=== PATIENT | female | born 1975 | race Caucasian/White ===

== ENCOUNTER 2017-04-24 09:56 | Emergency (ER) | payer OTHER ==
[~2017-04-24] VITALS: Ht 160 cm; Wt 60.0 kg
[~2017-04-24 09:56] MED LIST: LEVE500 PO; LORTA5 PO
[2017-04-24 09:57] VITALS: BP 122/94; PULSE 77; RESP 12; TEMP 97.6; O2SAT 99
[2017-04-24] MEDS ORDERED: SODIUM CHLOR 0.9% 1000 ML INJ 1,000 ML IV SCH (10:13)
[2017-04-24] MEDS ORDERED: PANT20 PO (10:13)
[2017-04-24] MEDS ORDERED: ONDANSETRON HCL 4 MG/2 ML VIAL IVP ONE (10:15)
[2017-04-24] MEDS ORDERED: SODIUM CHLORIDE 0.9% FLUSH 10 ML FLUSH IV FLUSH PRN (10:15)
--- NOTE | 2017-04-24 10:15 | PD ---
HPI Chief Complaint: GI Complaint Time Seen by Provider: 10:04 Travel History International Travel<30 days: No Contact w/Intl Traveler<30days: No Traveled to known affect area: No History of Present Illness HPI 41-year-old female with PMH of gastric bypass in 2011 presents to the ED for evaluation of 24 hour history of loose stools, nausea, vomiting. Patient denies fevers, chills, abdominal pain, dysuria, melena, hematochezia, BRBPR. 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 She treated with a dose of antidiarrheals with no permanent symptoms. PFSH Past Medical History Cancer: No Cardiovascular Problems: No Diminished Hearing: No Endocrine: No Gastrointestinal Disorders: No GERD: Yes Genitourinary: No Immune Disorder: No Implanted Vascular Access Dvce: No Musculoskeletal: No Neurologic: No Psychiatric: No Reproductive: No Respiratory: No ?: Not Past Surgical History Abdominal Surgery: Yes (GASTRIC BYPASS) Oral Surgery: Yes (wisdom teeth removed) Other Surgery: Yes Social History Alcohol Use: No Tobacco Use: No Substance Use: No Allergies-Medications (Allergen,Severity, Reaction): Coded Allergies: No Known Allergies (Unverified Adverse Reaction, Unknown, 04/24/17) Reported Meds & Prescriptions Reported Meds & Active Scripts Active Zofran Odt (Ondansetron Odt) 4 Mg Tab 4 Mg SL Q8HR PRN Macrobid (Nitrofurantoin Monoh/Nitrofur Macro) 100 Mg Cap 100 Mg PO BID 7 Days Reported Protonix (Pantoprazole Sodium) 20 Mg Tab 20 Mg PO BID Review of Systems Except as stated in HPI: all other systems reviewed are Neg Physical Exam Narrative GENERAL: Well-nourished, well-developed nontoxic appearing white female in no acute distress. SKIN: Focused skin assessment warm/dry. HEAD: Normocephalic. EYES: No scleral icterus. No injection or drainage. NECK: Supple, trachea midline. No JVD or lymphadenopathy. CARDIOVASCULAR: Regular rate and rhythm without murmurs, gallops, or rubs. RESPIRATORY: Breath sounds clear and equal bilaterally. No accessory muscle use. GASTROINTESTINAL: Abdomen soft, non-tender, nondistended. No palpable masses. Active bowel sounds. MUSCULOSKELETAL: No cyanosis, or edema. BACK: Nontender without obvious deformity. No CVA tenderness. Data Data Last Documented VS Vital Signs Date Time Temp Pulse Resp B/P (MAP) Pulse Ox O2 Delivery O2 Flow Rate FiO2 04/24/17 12:04 04/24/17 10:40 99 Room Air 04/24/17 09:57 97.6 77 12 Orders Orders Complete Blood Count With Diff (04/24/17 10:13) Comprehensive Metabolic Panel (04/24/17 10:13) Lipase (04/24/17 10:13) Urinalysis - C+S If Indicated (04/24/17 10:13) Iv Access Insert/Monitor (04/24/17 10:13) Ecg Monitoring (04/24/17 10:13) Oximetry (04/24/17 10:13) Ondansetron Inj (Zofran Inj) (04/24/17 10:15) Sodium Chlor 0.9% 1000 Ml Inj (Ns 1000 M (04/24/17 10:13) Sodium Chloride 0.9% Flush (Ns Flush) (04/24/17 10:15) Calcium Carbonate Chew (Tums Chew) (04/24/17 11:15) Urine Culture (04/24/17 11:30) Ed Discharge Order (04/24/17 12:05) Labs Laboratory Tests Test 04/24/17 10:30 04/24/17 11:30 White Blood Count 4.5 TH/MM3 Red Blood Count 4.13 MIL/MM3 Hemoglobin 13.3 GM/DL Hematocrit 39.4 % Mean Corpuscular Volume 95.6 FL Mean Corpuscular Hemoglobin 32.2 PG Mean Corpuscular Hemoglobin Concent 33.7 % Red Cell Distribution Width 13.6 % Platelet Count 209 TH/MM3 Mean Platelet Volume 6.9 FL Neutrophils (%) (Auto) 69.0 % Lymphocytes (%) (Auto) 22.1 % Monocytes (%) (Auto) 7.7 % Eosinophils (%) (Auto) 0.9 % Basophils (%) (Auto) 0.3 % Neutrophils # (Auto) 3.1 TH/MM3 Lymphocytes # (Auto) 1.0 TH/MM3 Monocytes # (Auto) 0.3 TH/MM3 Eosinophils # (Auto) 0.0 TH/MM3 Basophils # (Auto) 0.0 TH/MM3 CBC Comment DIFF FINAL Differential Comment Blood Urea Nitrogen 7 MG/DL Creatinine 0.66 MG/DL Random Glucose 79 MG/DL Total Protein 5.8 GM/DL Albumin 2.7 GM/DL Calcium Level 7.8 MG/DL Alkaline Phosphatase 51 U/L Aspartate Amino Transf (AST/SGOT) 30 U/L Alanine Aminotransferase (ALT/SGPT) 30 U/L Total Bilirubin 0.2 MG/DL Sodium Level 139 MEQ/L Potassium Level 3.3 MEQ/L Chloride Level 104 MEQ/L Carbon Dioxide Level 28.1 MEQ/L Anion Gap 7 MEQ/L Estimat Glomerular Filtration Rate 100 ML/MIN Lipase 209 U/L Urine Color YELLOW Urine Turbidity CLEAR Urine pH 6.0 Urine Specific [place] 1.014 Urine Protein NEG mg/dL Urine Glucose (UA) NEG mg/dL Urine Ketones NEG mg/dL Urine Occult Blood TRACE Urine Nitrite NEG Urine Bilirubin NEG Urine Urobilinogen LESS THAN 2.0 MG/DL Urine Leukocyte Esterase NEG Urine RBC 1 /hpf Urine WBC 1 /hpf Urine Squamous Epithelial Cells 6 /hpf Urine Bacteria MOD /hpf Urine Mucus FEW /lpf Microscopic Urinalysis Comment CULTURE INDICATED MDM Medical Decision Making Medical Screen Exam Complete: Yes Emergency Medical Condition: Yes Differential Diagnosis Gastroenteritis versus electrolyte abnormality versus dehydration versus other Narrative Course 41-year-old female with PMH of gastric bypass in 2011 presents to the ED for evaluation of 24 hour history of loose stools, nausea, vomiting. Patient denies fevers, chills, abdominal pain, dysuria, melena, hematochezia, BRBPR. 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 Vitals reviewed. On exam the patient's nontoxic appearing. Abdominal exam is completely unremarkable. No CVA tenderness noted. IV was established. Patient was administered 4 mg Zofran and 1 L normal saline. No concerning abnormalities and CBC. CMP with mild hypocalcemia. Patient was administered a gram of calcium by mouth. UA with evidence of UTI. I discussed the patient with Dr. Ybarra, on-call for Dr. Vaughn. He is in agreement that the patient is not require CT imaging of the abdomen and is safe for outpatient evaluation. She can call Dr. Vaughn on Tuesday after the holiday, return to the ED if her symptoms persist. I discussed this plan with the patient who is in agreement. She is prescribed Macrobid 100 mg twice a day 7 days, a few doses of Zofran. She is instructed to eat a BRAT diet for the next few days, take antibiotics until every pill is gone, follow-up as discussed. She is stable and discharged home. Diagnosis Primary Impression: Urinary tract infection Qualified Codes: N39.0 - Urinary tract infection, site not specified Additional Impressions: Nausea Gastroenteritis Referrals: Grady Vaughn MD Patient Instructions: General Instructions, Urinary Tract Infection in Women ( ED) Additional Instructions: Rest, hydrate. Eat a BRAT diet for the next few days. Take antibiotics as they're prescribed until every pill is gone. Zofran under the tongue as needed for nausea. Follow-up with Dr. Vaughn on Tuesday if symptoms persist as discussed. Return to the ED for any urgent or emergent medical condition. Med/Other Pt SpecificInfo: Prescription(s) given Scripts Ondansetron Odt (Zofran Odt) 4 Mg Tab 4 MG SL Q8HR Y for Nausea/Vomiting, #5 TAB 0 Refills Prov: Heron Chen MD 04/24/17 Nitrofurantoin Monohydrate Macrocrystals (Macrobid) 100 Mg Cap 100 MG PO BID for Infection for 7 Days, #14 CAP 0 Refills Prov: Heron Chen MD 04/24/17 Disposition: 01 DISCHARGE HOME Condition: Stable Cheyanne Licona Apr 24, 2017 10:15
[2017-04-24 10:40] VITALS: O2SAT 99
[2017-04-24 10:42] LABS: AUTOMATED NEUTROPHIL # 3.1 TH/MM3 (1.8-7.7); BASOPHIL % 0.3 % (0.0-2.0); EOSINOPHIL % 0.9 % (0.0-4.0); HEMATOCRIT 39.4 % (35.0-46.0); HEMOGLOBIN 13.3 GM/DL (11.6-15.3); LYMPH % 22.1 % (9.0-44.0); MEAN CELL VOLUME 95.6 FL (80.0-100.0); MEAN CORPUSCULAR HEMOGLOBIN 32.2 PG (27.0-34.0); MEAN CORPUSCULAR HGB CONC 33.7 % (32.0-36.0); MEAN PLATELET VOLUME 6.9 FL (7.0-11.0); MONO % 7.7 % (0.0-8.0); MONOCYTE # 0.3 TH/MM3 (0-0.9); PLATELET COUNT 209 TH/MM3 (150-450); RED BLOOD COUNT 4.13 MIL/MM3 (4.00-5.30); RED CELL DISTRIBUTION WIDTH 13.6 % (11.6-17.2); WHITE BLOOD COUNT 4.5 TH/MM3 (4.0-11.0)
[2017-04-24 10:57] LABS: ALBUMIN 2.7 GM/DL (3.4-5.0); AST (GOT) 30 U/L (15-37); BICARBONATE 28.1 MEQ/L (21.0-32.0); BLOOD UREA NITROGEN 7 MG/DL (7-18); CALCIUM 7.8 MG/DL (8.5-10.1); CHLORIDE 104 MEQ/L (98-107); CREATININE 0.66 MG/DL (0.50-1.00); GLOMERULAR FILTRATION RATE 100 ML/MIN (>89); GLUCOSE,RANDOM 79 MG/DL (74-106); LIPASE 209 U/L (73-393); SODIUM (NA) 139 MEQ/L (136-145)
[2017-04-24 10:58] LABS: ALT (GPT) 30 U/L (10-53)
[2017-04-24 11:00] LABS: ALKALINE PHOSPHATASE 51 U/L (45-117); TOTAL BILIRUBIN ADULT 0.2 MG/DL (0.2-1.0); TOTAL PROTEIN 5.8 GM/DL (6.4-8.2)
[2017-04-24] MEDS ORDERED: CALCIUM CARBONATE 500 MG CHEWABLE TAB CHEW ONE (11:15)
[2017-04-24 11:44] LABS: BACTERIA, URINE MOD /hpf; BILIRUBIN, URINE NEG (NEG); BLOOD, URINE TRACE (NEG); GLUCOSE,URINE NEG (NEG); KETONE, URINE NEG (NEG); MUCUS URINE FEW /lpf (OCC); NITRITE,URINE NEG (NEG); SQUAMOUS EPITHELIAL CELL URINE 6 /hpf (0-5); URINE COLOR YELLOW (YELLW/STRAW); URINE LEUKOCYTE ESTERASE NEG (NEG)
[2017-04-24] MEDS ORDERED: MACR100C2 PO (12:04)
[2017-04-24] MEDS ORDERED: ZOFR4TAB3 SL (12:04)
== END 2017-04-24 12:22 | disposition home or self-care (01) ==
LOC: NEPD 09:56
DX: N39.0 Urinary tract infection, site not specified (principal); B96.89 Other specified bacterial agents as the cause of diseases classified elsewhere; K52.9 Noninfective gastroenteritis and colitis, unspecified; K21.9 Gastro-esophageal reflux disease without esophagitis; Z98.84 Bariatric surgery status
CPT/HCPCS: 80053; 81001; 83690; 85025; 87086; 96361; 96374; 99284; J2405; J7030